=== PATIENT | female | born 1950 | race Caucasian/White ===

== ENCOUNTER → 2017-07-17 | Outpatient (CLI) | payer OTHER | LOC: FIMAGING 16:00 | PROVIDERS: ATTEND Internal Medicine | DX: Z12.31 Encounter for screening mammogram for malignant neoplasm of breast (principal) | CPT/HCPCS: G0202 ==

== ENCOUNTER 2017-08-30 18:26 | Emergency (ER) | payer OTHER ==
[2017-08-30 18:47] VITALS: BP 131/83; PULSE 73; RESP 18; TEMP 98.2; O2SAT 96
--- NOTE | 2017-08-30 22:43 | EDPHY ---
ED Progress Note Narrative: This patient was not in the room when I went in to evaluate. I was told by the nursing staff that she left without being seen and was planning on following up with her differential tester tomorrow.
== END 2017-08-30 20:23 | disposition left against medical advice (07) ==
DX: Z53.21 Procedure and treatment not carried out due to patient leaving prior to being seen by health care provider (principal)

== ENCOUNTER → 2018-07-18 | Outpatient (CLI) | payer OTHER | LOC: FIMAGING 13:41 | PROVIDERS: ATTEND Internal Medicine | DX: Z12.31 Encounter for screening mammogram for malignant neoplasm of breast (principal) ==